=== PATIENT | male | born 1960 | race Caucasian/White ===

== ENCOUNTER → 2024-11-29 06:39 | Outpatient (CLI) | payer MEDICARE, OTHER, SELFPAY ==
--- NOTE | 2024-11-29 06:45 | DI.US.S_ITS ---
PROCEDURE: US CAROTID DOPPLER BI INDICATIONS: LEFT BRUIT TECHNIQUE: Color and pulse Doppler interrogation was performed of both carotid systems, with image documentation and velocity measurements. COMPARISON: None. FINDINGS: Stenosis calculations are based on SRU ([employer] in [employer]) criteria. Right side: Brachial blood pressure: Not performed . Common carotid artery peak systolic velocity: 95 cm/sec. Internal carotid artery peak systolic velocity: 69 cm/sec. Internal carotid artery end diastolic velocity: To cm/sec. External carotid artery peak systolic velocity: 90 cm/sec. ICA/CCA peak systolic ratio: 0.7 . Lawson scale imaging description: No significant atheromatous plaques. Percent internal carotid artery stenosis: Less than 50% . Vertebral artery: Flow direction is antegrade. Left side: Brachial blood pressure: Not performed. Common carotid artery peak systolic velocity: 116 cm/sec. Internal carotid artery peak systolic velocity: 88 cm/sec. Internal carotid artery end diastolic velocity: 19 cm/sec. External carotid artery peak systolic velocity: 127 cm/sec. ICA/CCA peak systolic ratio: 0.8 . Lawson scale imaging description: No significant atheromatous plaques. Percent internal carotid artery stenosis: Less than 50% . Vertebral artery: Flow direction is antegrade. IMPRESSION: 1. In the right carotid artery, there is less than 50% stenosis based on peak systolic velocity criteria. 2. In the left carotid artery, there is less than 50% stenosis based on peak systolic velocity criteria. 3. Antegrade vertebral arteries. Dictated by: Nicolasa Nixon M.D. on 11/29/2024 at 9:25 Approved by: Nicolasa Nixon M.D. on 11/29/2024 at 9:29
== END ==
LOC: US 06:44
PROVIDERS: PCP Internal Medicine; Referring Provider Internal Medicine Cardiovascular Disease; Visit Provider Internal Medicine Cardiovascular Disease
DX: I65.23 Occlusion and stenosis of bilateral carotid arteries (principal); R09.89 Other specified symptoms and signs involving the circulatory and respiratory systems
CPT/HCPCS: 93880